=== PATIENT | male | born 1950 | race Hispanic/Latino ===

== ENCOUNTER 2021-05-31 09:48 | Outpatient (CLI) | payer MEDICARE | END 2021-05-31 09:49 | disposition home or self-care (01) | LOC: CSHRAD 09:48 | PROVIDERS: ATTEND Internal Medicine | DX: R10.9 Unspecified abdominal pain (principal) | CPT/HCPCS: 76705 ==

== ENCOUNTER 2023-04-23 14:35 | Inpatient (IN) | payer MEDICARE ==
[2023-04-23 16:07] VITALS: BMI 23.7
[2023-04-23] MEDS ORDERED: Ondansetron ODT 4 MG TAB PO PRN (16:34)
[2023-04-23] MEDS ORDERED: Acetaminophen 325 MG TAB PO PRN (16:34)
[2023-04-23] MEDS ORDERED: hydrALAZINE 20 MG/ML VIAL SLOW IVP SCH (16:45)
[2023-04-23] MEDS ORDERED: niCARdipine 25 MG in Sodium Chloride 0.9% 250 ML 250 ML IVPB SCH ×2 (17:00→18:19)
[2023-04-23] MEDS ORDERED: Amlodipine 10 MG TAB PO SCH (17:00)
[2023-04-23] MEDS: Atorvastatin Calcium 40 MG TAB PO SCH (20:25)
[2023-04-23 21:35] LABS: Troponin I 0.042 ng/mL (< 0.028)
[2023-04-24 03:40] LABS: ALT (SGPT) 25 U/L (8-55); AST (SGOT) 28 U/L (5-34); Albumin 3.5 g/dL (3.4-4.8); Alkaline Phosphatase 84 U/L (40-110); Anion Gap 15 mmol/L (10-20); BUN (Urea Nitrogen) 14 mg/dL (8.4-25.7); Bilirubin, Total 0.8 mg/dL (0.2-1.2); Calc. Creatinine Clearance 71 mL/min (70-130); Calcium 8.9 mg/dL (7.8-10.44); Carbon Dioxide 22 mmol/L (23-31); Chloride 107 mmol/L (98-107); Estimated GFR 71; Globulin 2.7 g/dL (2.4-3.5); Glucose 88 mg/dL (80-115); Potassium 3.2 mmol/L (3.5-5.1); Protein, Total 6.2 g/dL (5.8-8.1); Sodium 141 mmol/L (136-145)
[2023-04-24 04:02] LABS: #Basophils 0.1 10x3/uL (0.0-0.2); #Eosinphils 0.2 10x3/uL (0.0-0.5); #Monocytes 0.6 10x3/uL (0.0-1.1); #Neutrophils 4.4 10x3/uL (1.5-8.4); %Basophils 0.8 % (0.0-2.0); %Eosinophils 3.1 % (0.0-6.0); %Lymphocytes 19.5 % (18.0-47.0); %Neutrophils 67.3 % (40.0-75.0); Hemoglobin 14.3 g/dL (13.5-17.5); Mean Corpuscular HGB CONC 32.9 g/dL (32.0-36.0); Mean Corpuscular Hemoglobin 29.6 pg (27.0-33.0); Mean Corpuscular Volume 90.1 fl (81.2-95.1); Mean Platelet Volume 11.8 fl (7.4-10.4); Platelet Count 174 10x3/uL (150-450); RBC Distribution Width 14.3 % (11.5-14.5); Red Blood Cell (RBC) Count 4.83 10x6/uL (4.32-5.72); White Blood Cell (WBC) Count 6.6 10x3/uL (3.5-10.5)
[2023-04-24] MEDS: Amlodipine 10 MG TAB PO SCH (08:37)
[2023-04-24] MEDS: Aspirin 81 mg Enteric Coated Tablet PO SCH (08:37)
[2023-04-24] MEDS ORDERED: Electrolyte Replacement Protocol 1 EACH FS SCH (11:00)
[2023-04-24] MEDS ORDERED: Potassium Chloride 20 MEQ TAB PO SCH (12:00)
[2023-04-24] MEDS: Atorvastatin Calcium 40 MG TAB PO SCH (20:33)
[2023-04-25] MEDS: Amlodipine 10 MG TAB PO SCH (04:49)
[2023-04-25 05:03] LABS: Anion Gap 15 mmol/L (10-20); BUN (Urea Nitrogen) 14 mg/dL (8.4-25.7); Calc. Creatinine Clearance 64 mL/min (70-130); Carbon Dioxide 21 mmol/L (23-31); Cardiac Risk 2.9 (Less than 4.5); Chloride 109 mmol/L (98-107); Cholesterol 191 mg/dl (< 200 Desired); Estimated GFR 62; Glucose 81 mg/dL (80-115); HDL Cholesterol 66 mg/dL (>60 Neg Risk); LDL Cholesterol, Calculated 115 mg/dL; Magnesium 2.1 mg/dL (1.6-2.6); Phosphorus 2.7 mg/dL (2.3-4.7); Potassium 3.4 mmol/L (3.5-5.1); Sodium 142 mmol/L (136-145); Triglycerides 48 mg/dL (Less than 150)
[2023-04-25 05:11] LABS: Troponin I 0.023 ng/mL (< 0.028)
[2023-04-25] MEDS ORDERED: Potassium Chloride 20 MEQ TAB PO SCH (08:00)
[2023-04-25] MEDS ORDERED: Valsartan 80 MG TAB PO SCH (09:00)
[2023-04-25] MEDS ORDERED: Labetalol HCl 200 MG TAB PO SCH (09:00)
[2023-04-25] MEDS: Aspirin 81 mg Enteric Coated Tablet PO SCH (09:04)
[2023-04-25] MEDS: Labetalol HCl 100 MG TAB PO SCH (20:45)
[2023-04-25] MEDS: Atorvastatin Calcium 40 MG TAB PO SCH (20:45)
[2023-04-25] MEDS: Valsartan 80 MG TAB PO SCH (20:46)
[2023-04-26 05:48] LABS: Anion Gap 13 mmol/L (10-20); BUN (Urea Nitrogen) 21 mg/dL (8.4-25.7); Calc. Creatinine Clearance 60 mL/min (70-130); Calcium 8.6 mg/dL (7.8-10.44); Carbon Dioxide 24 mmol/L (23-31); Chloride 107 mmol/L (98-107); Estimated GFR 58; Glucose 89 mg/dL (80-115); Potassium 3.2 mmol/L (3.5-5.1); Sodium 141 mmol/L (136-145)
[2023-04-26] MEDS ORDERED: Meclizine HCl 12.5 MG TAB PO PRN (07:36)
[2023-04-26] MEDS: Valsartan 80 MG TAB PO SCH (08:26)
[2023-04-26] MEDS: Labetalol HCl 100 MG TAB PO SCH ×2 (08:26→15:26)
[2023-04-26] MEDS: Aspirin 81 mg Enteric Coated Tablet PO SCH (08:26)
[2023-04-26] MEDS ORDERED: Amlodipine 10 MG TAB PO SCH (09:00)
[2023-04-26] MEDS ORDERED: Potassium Chloride 20 MEQ TAB PO SCH (09:00)
[2023-04-26] MEDS ORDERED: NIFEdipine XL 60 MG TAB PO SCH (09:00)
[2023-04-26 12:38] VITALS: BP 164/76; TEMP 98.5
[2023-04-26 14:12] LABS: Potassium 3.7 mmol/L (3.5-5.1)
== END 2023-04-26 16:27 | DRG 78 ==
LOC: CSHTELE 15:38 → CSHIMCU 18:47 → CSHTELE 04-24 14:31
PROVIDERS: ADMIT Family Medicine; ATTEND Family Medicine
DX: I67.4 Hypertensive encephalopathy (principal); I16.1 Hypertensive emergency; N17.9 Acute kidney failure, unspecified; I67.89 Other cerebrovascular disease; H53.8 Other visual disturbances; F10.90 Alcohol use, unspecified, uncomplicated; Z79.82 Long term (current) use of aspirin; Z79.899 Other long term (current) drug therapy; Z86.73 Personal history of transient ischemic attack (TIA), and cerebral infarction without residual deficits
CPT/HCPCS: 36415; 70551; 80048; 80053; 80061; 83735; 84100; 84443; 84484; 85025; 93005; 93010; 93306; 93880; 94760; J0360; J1650; J7050